=== PATIENT | female | born 1985 | race Caucasian/White ===

== ENCOUNTER 2025-04-05 13:29 | Emergency (ER) | payer OTHER ==
[2025-04-05 13:41] VITALS: BP 114/73; PULSE 80; RESP 16; TEMP 97.9; BMI 42.9
== END 2025-04-05 15:19 | disposition home or self-care (01) ==
LOC: FER 13:29
DX: L98.9 Disorder of the skin and subcutaneous tissue, unspecified (principal); B35.3 Tinea pedis; L85.3 Xerosis cutis; L29.9 Pruritus, unspecified
CPT/HCPCS: 73660-TC-LT-FY; 99283-25